=== PATIENT | male | born 1990 | race Caucasian/White ===

== ENCOUNTER 2020-12-02 00:06 | Emergency (ER) | payer OTHER ==
[~2020-12-02] VITALS: Ht 185.4 cm; Wt 81.6 kg
--- NOTE | 2020-12-02 00:36 | NUR ---
BIB SELF C/O OF GENERALIZED BODY ACHES AND PAIN X3 DAYS IN ADDITION TO [place]UE[place] AND LOSS OF APPETITE. STATES GI ISSUES HAVE BEEN ONGOING AND BEEN TREATED AT [facility] WITH A GI SPECIALIST. ALSO STATES A RASH ON PENIS. CARLOTTA MCKENZIE WAS AT BEDSIDE FOR EVAL.
[2020-12-02] MEDS ORDERED: KETOROLAC TROMETHAMINE 15 MG/ML VIAL ONE ×2 (00:39→02:05)
[2020-12-02 00:53] LABS: BASOPHILS % (AUTO) 0.6 % (0.0-2.0); EOSINOPHILS % (AUTO) 0.7 % (0.0-6.0); HEMATOCRIT 39 % (39-51); HEMOGLOBIN 13.3 g/dL (13.5-17.5); LYMPHOCYTES # (AUTO) 1.7 K/uL (0.8-4.8); LYMPHOCYTES % (AUTO) 38.6 % (20.0-44.0); MEAN CORPUSCULAR HGB CONC 34 g/dl (31.0-36.0); MEAN CORPUSCULAR VOLUME 92 fL (80-96); MONOCYTES # (AUTO) 0.3 K/uL (0.1-1.30); MONOCYTES % (AUTO) 7.8 % (2.0-12.0); NEUTROPHILS # (AUTO) 2.3 K/uL (1.8-8.9); NEUTROPHILS % (AUTO) 52.3 % (43.0-81.0); PLATELET COUNT (AUTO) 248 K/uL (150-450); RED BLOOD CELL COUNT(AUTO) 4.25 MIL/uL (4.5-6.0); WHITE BLOOD COUNT (AUTO) 4.4 K/uL (4.3-11.0)
[2020-12-02] MEDS ORDERED: KETOROLAC TROMETHAMINE INJ 30 MG/ML VIAL IV ONE ×2 (01:00→02:00)
[2020-12-02] MEDS ORDERED: IV NS 0.9% 1,000 ML BAG IV ONE (01:00)
[2020-12-02 01:01] LABS: CALCIUM, SERUM 8.3 mg/dL (8.5-10.1); POTASSIUM 3.9 mmol/L (3.5-5.1)
[2020-12-02 01:07] LABS: ALBUMIN 4.5 g/dL (3.4-5.0); BILIRUBIN,DIRECT 0.1 mg/dL (0.0-0.2); BILIRUBIN,TOTAL 0.4 mg/dL (0.2-1.0); TOTAL PROTEIN, SERUM 8.1 g/dL (6.4-8.2)
[2020-12-02 01:29] LABS: BILIRUBIN,URINE Negative (NEGATIVE); COLOR,URINE YELLOW (YELLOW); LEUKOCYTE ESTERASE ,URINE Negative (NEGATIVE); NITRITE, URINE Negative (NEGATIVE); PROTEIN,URINE Negative (NEGATIVE); UGLUCOSE Negative (NEGATIVE); UROBILINOGEN,URINE 0.2 EU/dL (0.2)
[2020-12-02] MEDS ORDERED: DOXY-326 PO (02:19)
[2020-12-02] MEDS ORDERED: DOXYCYCLINE HYCLATE (100 MG) 100 MG TABLET PO ONE (02:30)
[2020-12-02] MEDS ORDERED: DOXYCYCLINE HYCLATE (100 MG) 100 MG TABLET ONE (02:40)
[2020-12-02] MEDS ORDERED: ONDA4TAB11 PO (02:48)
[2020-12-02] MEDS ORDERED: IBUP-1957 PO (02:48)
--- NOTE | 2020-12-02 02:53 | NUR ---
pt discharged home in stable condition. written and verbal instructions provided. pt confirmed understanding of instructions. IV line removed and VSS.
[2020-12-02 02:56] VITALS: BP 122/67
== END 2020-12-02 02:56 | disposition home or self-care (01) ==
LOC: ER 00:11
DX: M79.10 Myalgia, unspecified site (principal); N34.2 Other urethritis; A64 Unspecified sexually transmitted disease; Z20.822 Contact with and (suspected) exposure to COVID-19; Z88.0 Allergy status to penicillin; Z88.8 Allergy status to other drugs, medicaments and biological substances
CPT/HCPCS: 36415; 80048; 80076; 81003; 82550; 83690; 85025; 86706; 86803; 87426; 87491; 87591; 87806; 96361; 96374; 96376; 99284; C9803; J1885 ×2; J7030